=== PATIENT | female | born 1940 | race Caucasian/White ===

== ENCOUNTER 2018-05-02 08:04 | Day surgery (SDC) | payer OTHER ==
[~2018-05-02 08:04] MED LIST: ASPIR 8181 MG PO; IRBESARTAN-HCT1 EAC1 PO; MULTI-VITAMIN1 EACH PO; NORVASC2.5 M1 PO
== END 2018-05-02 18:40 | disposition home or self-care (01) ==
LOC: CIR.AMB 08:04
DX: S52.531A Colles' fracture of right radius, initial encounter for closed fracture (principal)
CPT/HCPCS: 25609; 20902; 25118; 25280; C1776